=== PATIENT | male | born 1970 | race Caucasian/White ===

== ENCOUNTER 2017-12-31 08:32 | Day surgery (SDC) | payer BC ==
[~2017-12-31 08:32] MED LIST: CEFAZOLIN 2 GM-D5W BAG** 2 GM/50 ML ML IV SCH; Lactated Ringers 1,000 ML IV ONE; Lactated Ringers 1,000 ML IV SCH; Sensorcaine 0.25% 10 ML ONE
[2017-12-31] MEDS ORDERED: Lactated Ringers 1,000 ML IV ONE (08:48)
[2017-12-31] MEDS ORDERED: CEFAZOLIN 2 GM-D5W BAG** 2 GM/50 ML ML IV ONE (08:51)
--- NOTE | 2017-12-31 08:52 | HP ---
PROCEDURE DATE: 12/31/17 HISTORY OF PRESENT ILLNESS: Patient is a 47 y/o who had for the past couple of years, more symptomatic now, pain left inguinal area. Is up and down testicle area aches and pains and swelling. Had left inguinal hernia on exam. Possibly might even have a hydrocele as well. PAST MEDICAL HISTORY: Denies any chronic illnesses. CURRENT MEDICATIONS: None. ALLERGIES: NKDA. PAST SURGICAL HISTORY: He had elbow surgery in the past. FAMILY HISTORY: Negative with regards to this problem. SOCIAL HISTORY: 1 pack per day smoker. Drinks some alcohol on weekends. Denies abuse. REVIEW OF SYSTEMS: 12 systems reviewed. No chest pain or palpitations. Other systems negative or noncontributory other than above and per preadmission questionnaire. PHYSICAL EXAMINATION: GENERAL: No acute distress. HEENT: Sclerae nonicteric. NECK: No JVD. CHEST: Equal excursion. Nonlabored breathing. CVS: Regular rate and rhythm. ABDOMEN: Soft. He has got a left inguinal hernia on exam. May also have even a hydrocele component. NEURO: Alert and oriented, moving extremities symmetrically. No gross motor deficits noted. IMPRESSION: 1. LEFT INGUINAL HERNIA, POSSIBLY EVEN CONCOMMITANT HYDROCELE. Feel the patient would benefit from open left inguinal hernia repair, possible drainage of hydrocele. Shown the risk sheet. Explained the procedure in detail, not limited to bleeding; infection; risk of hematoma or seroma formation; risk of ingrown hair or suture reaction in incision itself; risk if the mesh became infected likely would need to be removed; overall risk of hernia recurrence; general risk of aches, pains, burning, and numbness in lower abdomen, groin, thigh, or scrotal area possibly long-term or chronic in nature in up to 10-12% with risk of sensory nerve irritation, scar formation, or injury; possible higher risk of intermittent ache or twinge. He also understands there is the possibility that the hydrocele could have recurrence and he may need referral to urology for further intervention if he has problems with recurrent hydrocele. General risks of anesthesia, deep vein thrombosis, pulmonary embolism, or pneumonia. He understands the hernia repair is designed to repair the hernia to decrease the risk of it getting larger and getting bowel entrapped, but it does not always improve current aches or pains and can have additional aches and pains from surgery, incision and scar itself and could be long-term and could interfere with sexual function from the aches and pains standpoint. He understands all of the above as well as the risk of urinary retention; general risks of anesthesia, deep vein thrombosis, pulmonary embolism, or pneumonia, but not limited to. Will proceed with open repair left inguinal hernia with mesh with possible drainage of hydrocele if indicated.
[2017-12-31 09:27] VITALS: BP 145/96; PULSE 107; O2SAT 91
[2017-12-31 09:45] LABS: Hematocrit 51.1 % (42-50); Hemoglobin 17.9 gm/dl (12.5-18.0); Mean Cell Volume 90.6 fl (78-100); Mean Corpuscular Hemoglobin 31.7 pg (26-32); Platelet Count 246 K/mm3 (150-450); Red Blood Count 5.64 M/mm3 (4.1-5.6); Red Cell Distribution Width 13.4 % (11.5-14.0); White Blood Count 15.1 K/mm3 (4.0-10.5)
[2017-12-31 10:00] LABS: ANION GAP 16.8 MEQ/L (5-15); BLOOD UREA NITROGEN 11 mg/dL (9-20); CHLORIDE 110 mmol/L (98-107); Carbon Dioxide 21 mmol/L (22-30); Creatinine 1 1.04 mg/dL (0.66-1.25); ETHYL ALCOHOL 27 mg/dL (0-10); Glucose 178 mg/dL (74-106); Potassium 4.1 mmol/L (3.5-5.1); SODIUM 143 mmol/L (137-145)
== END 2017-12-31 10:35 | disposition home or self-care (01) ==
LOC: SDC 08:32
PROVIDERS: ATTEND Surgery
DX: K40.90 Unilateral inguinal hernia, without obstruction or gangrene, not specified as recurrent (principal); Z53.09 Procedure and treatment not carried out because of other contraindication; D72.829 Elevated white blood cell count, unspecified; Z72.89 Other problems related to lifestyle
CPT/HCPCS: 36415; 80048; 80307; 85027; 94250; J0690; G0480

== ENCOUNTER 2018-02-11 12:40 | Day surgery (SDC) | payer BC ==
--- NOTE | 2018-02-11 07:53 | HP ---
DATE OF SURGERY: 02/11/2018 HISTORY OF PRESENT ILLNESS: The patient is a 47 year-old who the last two years more symptoms of increased pain, now has left inguinal hernia question whether he had a hydrocele. He had previously scheduled that had to be scheduled because he was intoxicated at the time when he showed up for this procedure. PAST MEDICAL HISTORY: He denies any chronic illnesses. PAST SURGICAL HISTORY: Elbow surgery in the past. MEDICATIONS: None. ALLERGIES: NKDA. FAMILY HISTORY: Negative in regards to this problem. SOCIAL HISTORY: One pack per day smoker. He drinks alcohol on the weekend. He denies abuse. REVIEW OF SYSTEMS: Twelve systems reviewed. No chest pain or palpitations other systems negative or noncontributory as above and per preadmission questionnaire. PHYSICAL EXAMINATION: GENERAL: No acute distress. HEENT: Sclerae nonicteric. NECK: No JVD. CHEST: Equal excursion, nonlabored breathing. CVS: Regular rate and rhythm. ABDOMEN: Soft. No peritoneal signs. He does have left inguinal hernia and question of hydrocele. EXTREMITIES: No significant edema. NEURO: Alert, oriented, moving extremities symmetrically. No gross motor deficits noted. IMPRESSION: Left inguinal hernia question hydrocele. I feel he will benefit from left inguinal hernia repair that is increasing in size and symptoms as well as possible hydrocele present. Risks and benefits explained in detail but not limited to bleeding or infection, risk of swelling or firmness in the incision, risk of hematoma or seroma formation. Risk of hernia recurrence plus ingrown hair or suture reaction. Risk if the mesh became infected likely would need removed. Risk of aches, pains, burning or numbness lower abdomen, groin, thigh or scrotal area. Risk of sensory nerve irritation, scar formation or injury, up to 10 to 12% risk of chronic aches, pains, burning or numbness possibly joint terminal attack controller, possibly interfering with sexual function from the pain standpoint. He also understands the possibility of higher risk of intermittent ache or twinge, overall risk of hernia recurrence. He understands should he have a hydrocele will drain but there is a risk of recurrence. It could require referral to urologist for further treatment. General risk of anesthesia, deep venous thrombosis, pulmonary embolism, pneumonia but not limited to. He understands all the above but not limited to. Will proceed with open left inguinal hernia repair with possible drainage of hydrocele if present.
[~2018-02-11 12:40] MED LIST changes: -CEFAZOLIN 2 GM-D5W BAG** 2 GM/50 ML ML IV SCH; -Lactated Ringers 1,000 ML IV SCH
[2018-02-11] MEDS ORDERED: SUBLIMAZE 100 MCG/2 ML IV ONE (12:41)
[2018-02-11] MEDS ORDERED: Zemuron 100 MG/10 ML IJ ONE (12:41)
[2018-02-11] MEDS ORDERED: DIPRIVAN 200 MG/20 ML IV ONE (12:41)
[2018-02-11] MEDS ORDERED: Zofran 4 MG/2 ML VIAL IV ONE (12:41)
[2018-02-11] MEDS ORDERED: DILAUDID 2 MG INJECTION IV ONE (12:41)
[2018-02-11] MEDS ORDERED: TORAdol 30 mg Injection IJ ONE (12:41)
[2018-02-11] MEDS ORDERED: Decadron 4 MG INJ IV ONE (12:41)
[2018-02-11] MEDS ORDERED: Naropin 0.5% 30 ML VIAL IJ ONE (12:41)
[2018-02-11] MEDS ORDERED: CEFAZOLIN 2 GM-D5W BAG** 2 GM/50 ML ML IV STA (13:26)
[2018-02-11 13:29] LABS: BASOPHIL % 0.4 % (0.0-0.4); Basophil (Absolute #) 0.05 (0-0.4); Eosinophil % 1.4 % (0.00-5.0); Eosinophil (Absolute #) 0.17 (0-0.5); Granulocyte Absolute (ANC) 8.11 (1.4-6.9); Granulocytes % 66.4 % (36.0-66.0); Hematocrit 51.3 % (42-50); Hemoglobin 17.5 gm/dl (12.5-18.0); Lymphocyte (Absolute #) 2.98 (1.0-4.6); Lymphocytes % 24.4 % (24.0-44.0); Mean Cell Volume 92.1 fl (78-100); Mean Corpuscular Hemoglobin 31.4 pg (26-32); Mean Corpuscular Hgb Concent. 34.1 g/dl (32-36); Mean Platelet Volume 9.9 fl (6-9.5); Monocyte (Absolute #) 0.91 (0.0-1.3); Monocytes % 7.4 % (0.0-12.0); Platelet Count 310 K/mm3 (150-450); Red Blood Count 5.57 M/mm3 (4.1-5.6); White Blood Count 12.2 K/mm3 (4.0-10.5)
[2018-02-11] MEDS ORDERED: Lactated Ringers 1,000 ML IV SCH (13:30)
[2018-02-11 13:32] LABS: Glucose 113 mg/dL (74-106)
[2018-02-11 13:38] LABS: ETHYL ALCOHOL < 10 mg/dL (0-10)
[2018-02-11] MEDS ORDERED: SUBLIMAZE 100 MCG/2 ML ONE (18:05)
[2018-02-11] MEDS ORDERED: Lactated Ringers 1,000 ML IV ONE (18:08)
[2018-02-11] MEDS ORDERED: APRESOLINE 20 MG/ML INJ ONE ×2 (18:09→18:40)
[2018-02-11] MEDS ORDERED: DILAUDID 2 MG INJECTION ONE (18:15)
[2018-02-11 19:17] VITALS: O2SAT 99
[2018-02-11 19:26] VITALS: BP 147/92; PULSE 95
--- NOTE | 2018-02-12 10:56 | OP ---
SURGERY DATE/TIME: 02/11/2018 1615 PREOPERATIVE DIAGNOSES: 1) Left inguinal hernia. 2) Question left hydrocele. POSTOPERATIVE DIAGNOSES: 1) Left inguinal hernia. 2) Question left hydrocele. PROCEDURES: 1) Left inguinal hernia repair with mesh. 2) Drainage of marsupialization of left hydrocele. SURGEON: Dr. Terry Andino. EPITAXIAL REACTOR TECHNICIAN: Osmany Vergara M.D., [facility] Resident. ANESTHESIA: General. ESTIMATED BLOOD LOSS: Minimal. INDICATIONS: As noted above. Risks and benefits explained in detail and not limited to and consent obtained. The site had been confirmed and marked with the patient in the preoperative holding area. He had been advised the risk of recurrence of the hydrocele possibly requiring other intervention or referral to urologist. DESCRIPTION OF PROCEDURE AND FINDINGS: He is taken to the operating room. General anesthesia induced. Abdomen, groin and genitalia prepped and draped in usual sterile fashion. After official time out and no disagreement with planned procedure, a transverse incision made left inguinal area. The inferior epigastric vein divided and ligated with Vicryl ties. Dissection carried down through Lucius fascia. External oblique split in the direction of its fibers towards the external ring carefully protecting the visit ilioinguinal and iliohypogastric nerve branches. The cord gently mobilized up off the pubic tubercle with a [place] drain. Careful separation of Cremasteric fibers. He had a very small, lateral cord lipoma separate from cord that was high ligated with 3-0 Vicryl LigaSure and passed off. There was no evidence of any indirect component. However there is a moderate sized direct hernia component this was imbricated downward with interrupted 0 PDS. It should be noted he had quite weak tissue to bring back together and it was imbricated down to normal internal ring. I felt he would benefit from mesh repair. A 2x4 piece of mesh cut to appropriate dimension secured to the fascia overlying the pubic tubercle with 0 Prolene run along Kristian's ligament along the shelving portion of the ilioinguinal ligament with 0 Prolene laterally past the internal ring. 0 Prolene used to transfix to the rectus fascia medially. 0 Vicryl was used to transfix the aponeurosis to internal oblique superior avoiding the visible branches of ilioinguinal and iliohypogastric nerve branches. Tails of the mesh tacked together laterally with 0 Prolene and the internal ring was felt to be not too tight. The mesh lying nice and flat on external oblique laterally. Good hemostasis noted. Attention had been returned to the drainage of the hydrocele. With careful pushing the scrotum up immobilizing hydrocele up into the inguinal wound. It was then opened and drained of clear serous fluid. There was scant ooze of the edge. It was over sewn and marsupialized with running 3-0 Vicryl. Good hemostasis noted. Copious amount of irrigation irrigating until clear. Mesh lying nice and flat in tension-free manner. The external oblique closed with 0 Vicryl. Lucius closed with 3-0 Vicryl. Subcu closed with 3-0 Vicryl. Skin closed with 4-0 Vicryl. 0.25% Marcaine local injected along the skin incision back towards the origin of the inguinal area back towards the anterior iliac spine. Anesthesia planning a block at the end of the procedure. Please see his notes. The patient give scrotal support. Steri-Strips and sterile dressing applied. There were no immediate complications. There was no family available to discuss the findings with at this time.
== END 2018-02-11 19:30 | disposition home or self-care (01) ==
LOC: SDC 12:40
PROVIDERS: ATTEND Surgery
DX: K40.90 Unilateral inguinal hernia, without obstruction or gangrene, not specified as recurrent (principal); N43.3 Hydrocele, unspecified; Z79.4 Long term (current) use of insulin; E10.9 Type 1 diabetes mellitus without complications; E11.9 Type 2 diabetes mellitus without complications; Z72.0 Tobacco use; Z79.899 Other long term (current) drug therapy; I10 Essential (primary) hypertension
CPT/HCPCS: 36415; 64486; 76937; 76942; 80307; 82947; 82962; 85025; 94250; C1781; J0360; J0690; J1100; J1170; J1885; J2405; J2704; J2795; J3010; G0480